=== PATIENT | female | born 1995 | race Hispanic/Latino ===

== ENCOUNTER 2018-03-01 13:06 | Emergency (ER) | payer MEDICAID ==
[2018-03-01 13:13] VITALS: BP 151/94; PULSE 124; RESP 20; TEMP 98.3; O2SAT 99
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
== END 2018-03-01 13:55 | disposition left against medical advice (07) ==
LOC: H.ER 13:06
DX: Z04.6 Encounter for general psychiatric examination, requested by authority (principal)

== ENCOUNTER 2018-10-15 19:11 | Emergency (ER) | payer MEDICAID ==
[2018-10-15 20:02] LABS: BASO # 0.1 K/uL (0.0-0.2); BASO % 0.5 % (0.0-2.0); EOS # 0.1 K/uL (0.0-0.7); EOS % 0.8 % (0.0-4.0); HEMOGLOBIN 14.8 g/dL (12.0-16.0); LYMPH # 2.6 K/uL (1.0-4.3); MEAN CELL VOLUME 86.9 fl (81.0-99.0); MEAN CORPUSCULAR HEMOGLOBIN 29.5 pg (27.0-31.0); MEAN PLATELET VOLUME 7.6 fl (7.2-11.7); MONO # 0.9 K/uL (0.0-0.8); MONO % 5.5 % (0.0-10.0); NEUT # 12.4 K/uL (1.8-7.0); NEUT % 77.2 % (50.0-75.0); RBC 5.01 Mil/uL (3.80-5.20); RED CELL DISTRIBUTION WIDTH 12.9 % (11.5-14.5)
[2018-10-15 20:16] LABS: ACETAMINOPHEN < 10.0 ug/ml (10.0-30.0); BLOOD UREA NITROGEN 10 mg/dl (7-17); GFR NON-AFRICAN AMERICAN > 60; SALICYLATE < 1.0 mg/dl
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
[2018-10-15] MEDS ORDERED: Potassium Chloride 20 mEq ER Tab PO ONE (22:51)
[2018-10-15 23:33] LABS: SQUAMOUS EPITHIAL 2 /hpf (0-5); URINE BILIRUBIN NEGATIVE (NEGATIVE); URINE BLOOD NEGATIVE (NEGATIVE); URINE CLARITY SLIGHTY-CLOUDY (Clear); URINE COLOR YELLOW (YELLOW); URINE GLUCOSE (UA) NEG (NEGATIVE); URINE LEUKOCYTE ESTERASE NEG Leu/uL (Negative); URINE PROTEIN 100 mg/dL (NEGATIVE); URINE UROBILINOGEN 0.2-1.0 mg/dL (0.2-1.0)
[2018-10-15 23:49] LABS: BARBITURATES, UR NEGATIVE (NEGATIVE); BENZODIAZEPINES, UR NEGATIVE (NEGATIVE); OPIATES, UR NEGATIVE (NEGATIVE); PHENCYCLIDINE, UR NEGATIVE (NEGATIVE)
--- NOTE | 2018-10-16 01:24 | ED PDOC ---
- Laboratory Results Result Diagrams: 10/15/18 19:56 10/15/18 19:56 Lab Results: Urine Color Yellow (YELLOW) 10/15/18 23:17 Urine Clarity Slighty-cloudy (Clear) 10/15/18 23:17 Urine pH 6.0 (5.0-8.0) 10/15/18 23:17 Ur Specific [place] 1.025 (1.003-1.030) 10/15/18 23:17 Urine Protein 100 mg/dL (NEGATIVE) 10/15/18 23:17 Urine Glucose (UA) Neg mg/dL (NEGATIVE) 10/15/18 23:17 Urine Ketones Negative mg/dL (NEGATIVE) 10/15/18 23:17 Urine Blood Negative (NEGATIVE) 10/15/18 23:17 Urine Nitrate Negative (NEGATIVE) 10/15/18 23:17 Urine Bilirubin Negative (NEGATIVE) 10/15/18 23:17 Urine Urobilinogen 0.2-1.0 mg/dL (0.2-1.0) 10/15/18 23:17 Ur Leukocyte Esterase Neg Rosa Maria/uL (Negative) 10/15/18 23:17 Urine RBC (Auto) 4 /hpf (0-3) H 10/15/18 23:17 Urine Microscopic WBC 2 /hpf (0-5) 10/15/18 23:17 Ur Squamous Epith Cells 2 /hpf (0-5) 10/15/18 23:17 - ECG O2 Sat by Pulse Oximetry: 98 (RA) Medical Decision Making Medical Decision Makin Patient signed out to this provider by pending [facility] screen evaluation 0200 Vital signs stable, patient resting comfortably 0400 Vital signs stable, patient resting comfortably 0500 Patient evaluated by [facility] screener and has been accepted pending bed availability Scribe Attestation: Documented by Luke Segal acting as a scribe for Broa Rangel MD. Provider Scribe Attestation: All medical record entries made by the Scribe were at my direction and personally dictated by me. I have reviewed the chart and agree that the record accurately reflects my personal performance of the history, physical exam, medical decision making, and the department course for this patient. I have also personally directed, reviewed, and agree with the discharge instructions and disposition. Disposition - Clinical Impression Clinical Impression: Schizophrenia - POA Present On Arrival: None - Disposition Disposition: Routine/Home Disposition Time: 07:00 Condition: FAIR Forms: [employer] (Chadian)
[2018-10-16] MEDS ORDERED: Potassium Chloride 20 mEq ER Tab PO ONE (02:44)
--- NOTE | 2018-10-16 09:37 | RAD ---
Date of service: 10/16/2018 HISTORY: crisis screening COMPARISON: No prior. TECHNIQUE: 1 view obtained. FINDINGS: LUNGS: No active pulmonary disease. PLEURA: No significant pleural effusion identified, no pneumothorax apparent. CARDIOVASCULAR: No aortic atherosclerotic calcification present. Normal cardiac size. No pulmonary vascular congestion. OSSEOUS STRUCTURES: No significant abnormalities. VISUALIZED UPPER ABDOMEN: Normal. OTHER FINDINGS: None. IMPRESSION: No active disease.
--- NOTE | 2018-10-16 10:54 | CARD ---
APPROVED REPORT Date of service: 10/15/2018 EKG Measurement Heart [id number] <Conclusion> Normal sinus rhythm Normal ECG
--- NOTE | 2018-10-16 15:15 | ED PDOC ---
- Laboratory Results Result Diagrams: 10/15/18 19:56 10/15/18 19:56 Lab Results: Urine Color Yellow (YELLOW) 10/15/18 23:17 Urine Clarity Slighty-cloudy (Clear) 10/15/18 23:17 Urine pH 6.0 (5.0-8.0) 10/15/18 23:17 Ur Specific [place] 1.025 (1.003-1.030) 10/15/18 23:17 Urine Protein 100 mg/dL (NEGATIVE) 10/15/18 23:17 Urine Glucose (UA) Neg mg/dL (NEGATIVE) 10/15/18 23:17 Urine Ketones Negative mg/dL (NEGATIVE) 10/15/18 23:17 Urine Blood Negative (NEGATIVE) 10/15/18 23:17 Urine Nitrate Negative (NEGATIVE) 10/15/18 23:17 Urine Bilirubin Negative (NEGATIVE) 10/15/18 23:17 Urine Urobilinogen 0.2-1.0 mg/dL (0.2-1.0) 10/15/18 23:17 Ur Leukocyte Esterase Neg Rosa Maria/uL (Negative) 10/15/18 23:17 Urine RBC (Auto) 4 /hpf (0-3) H 10/15/18 23:17 Urine Microscopic WBC 2 /hpf (0-5) 10/15/18 23:17 Ur Squamous Epith Cells 2 /hpf (0-5) 10/15/18 23:17 - ECG O2 Sat by Pulse Oximetry: 98 (RA) Pulse Ox Interpretation: Normal Medical Decision Making Medical Decision Making: Time: 0700 Plan: -- Patient endorsed to ri by Dr. Rangel, pending [facility] bed availability. Time: 0800 Plan -- CXR Portable ordered for transfer to [facility]. Time: 1000 -- On re-evaluation, patient is resting comfortably in no acute distress. Time: 1200 -- As per munitions worker, bed will be available after 4:30 PM. Patient will be transferred to [facility] at 5 PM. Time: 1400 -- On re-evaluation, patient is resting comfortably and in no acute distress. Time: 1500 -- Patient endorsed to Dr. Mejia, pending [facility] transfer. Scribe Attestation: Documented by Socrates Teran, acting as a scribe for Hansel Paris MD. Provider Scribe Attestation: All medical record entries made by the Scribe were at my direction and personally dictated by me. I have reviewed the chart and agree that the record accurately reflects my personal performance of the history, physical exam, medical decision making, and the department course for this patient. I have also personally directed, reviewed, and agree with the discharge instructions and disposition. Disposition Counseled Patient/Family Regarding: Studies Performed, Diagnosis - POA Present On Arrival: None - Disposition Disposition Time: 15:00 Condition: STABLE Forms: [employer] (Yi)
--- NOTE | 2018-10-16 15:18 | ED PDOC ---
- Laboratory Results Result Diagrams: 10/15/18 19:56 10/15/18 19:56 Lab Results: Urine Color Yellow (YELLOW) 10/15/18 23:17 Urine Clarity Slighty-cloudy (Clear) 10/15/18 23:17 Urine pH 6.0 (5.0-8.0) 10/15/18 23:17 Ur Specific [place] 1.025 (1.003-1.030) 10/15/18 23:17 Urine Protein 100 mg/dL (NEGATIVE) 10/15/18 23:17 Urine Glucose (UA) Neg mg/dL (NEGATIVE) 10/15/18 23:17 Urine Ketones Negative mg/dL (NEGATIVE) 10/15/18 23:17 Urine Blood Negative (NEGATIVE) 10/15/18 23:17 Urine Nitrate Negative (NEGATIVE) 10/15/18 23:17 Urine Bilirubin Negative (NEGATIVE) 10/15/18 23:17 Urine Urobilinogen 0.2-1.0 mg/dL (0.2-1.0) 10/15/18 23:17 Ur Leukocyte Esterase Neg Rosa Maria/uL (Negative) 10/15/18 23:17 Urine RBC (Auto) 4 /hpf (0-3) H 10/15/18 23:17 Urine Microscopic WBC 2 /hpf (0-5) 10/15/18 23:17 Ur Squamous Epith Cells 2 /hpf (0-5) 10/15/18 23:17 - ECG O2 Sat by Pulse Oximetry: 98 (RA) Pulse Ox Interpretation: Normal Medical Decision Making Medical Decision Making: Time: 1500 -- Patient endorsed to me by Dr. Paris, pending [facility] transfer. 1800 Bed available. Transfer initiated. Stable for transfer. Scribe Attestation: Documented by Socrates Teran, acting as a scribe for Vida Mejia MD. Provider Scribe Attestation: All medical record entries made by the Scribe were at my direction and personally dictated by me. I have reviewed the chart and agree that the record accurately reflects my personal performance of the history, physical exam, medical decision making, and the department course for this patient. I have also personally directed, reviewed, and agree with the discharge instructions and disposition. Disposition - Clinical Impression Clinical Impression: Schizophrenia - POA Present On Arrival: None - Disposition Disposition: Other Institution Disposition Time: 18:00 Condition: STABLE Forms: [employer] (Bengali)
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
[2018-10-16 19:50] VITALS: RESP 16
[2018-10-16 21:21] VITALS: BP 122/65; PULSE 81; TEMP 98.1; O2SAT 98
== END 2018-10-16 20:15 | disposition home or self-care (01) ==
LOC: H.ER 19:11
DX: F20.9 Schizophrenia, unspecified (principal)
CPT/HCPCS: 71045; 80048; 80320; 80324; 80329; 80345; 80346; 80349; 80353; 80358; 80361; 81003; 81025; 83992; 85025; 93005; 96372; 99285; J1630; J2060